=== PATIENT | female | born 1945 | race Caucasian/White ===

== ENCOUNTER 2020-02-21 10:02 | Emergency (ER) | payer MEDICARE, SELFPAY ==
--- NOTE | ~2020-02-21 | XR_ITS ---
XR hand RT min 3V DATE: 02/21/2020 10:50 INDICATION: Patient fell 2 days ago. Lower right rib pain. TECHNIQUE: PA chest. 3 views of the right ribs. COMPARISON: None FINDINGS: Normal heart size. No hilar or mediastinal enlargement. No pulmonary infiltrate or consolid ation, pleural effusion or pulmonary vascular congestion or pneumothorax. No displaced right rib fracture is noted. Surgical clips overlie the right upper quadrant, consistent with cholecystectomy. IMPRESSION: No evidence of displaced right rib fracture No active cardiac pulmonary disease Status post cholecystectomy Reviewed, dictated and finalized at location A. [facility]
[2020-02-21 10:22] VITALS: BP 139/83; PULSE 76; RESP 18; TEMP 36.9; O2SAT 100
--- NOTE | 2020-02-21 10:22 | ED.UPPEXIN ---
HPI - Extremity Injury (Upper) General Chief Complaint: Extremity Injury, Upper Stated Complaint: R/thumb pain Source: patient Mode of arrival: ambulatory Limitations: no limitations History of Present Illness HPI narrative: Patient is a 74-year-old female who presents complaining of right thumb pain. Patient reports pain at the base of right thumb and into the palm. Denies known injury, however, does report carrying groceries frequently. She reports pain x3 days. She has a history of gout. She takes allopurinol daily. She reports mild swelling and increased pain with movement, no warmth noted. She denies taking [id number] medications for pain at this time. complaint: injury to: right and hand Related Data Home Medications Medication Instructions Recorded Confirmed allopurinol 300 mg DAILY 02/21/20 02/21/20 amlodipine 5 mg DAILY 02/21/20 02/21/20 aspirin 81 mg DAILY 02/21/20 02/21/20 atorvastatin 20 mg DAILY 02/21/20 02/21/20 citalopram 20 mg DAILY 02/21/20 02/21/20 clopidogrel 75 mg DAILY 02/21/20 02/21/20 hydrochlorothiazide 25 mg DAILY 02/21/20 02/21/20 lisinopril 40 mg DAILY 02/21/20 02/21/20 metformin 850 mg DAILY 02/21/20 02/21/20 metoprolol tartrate 50 mg BID 02/21/20 02/21/20 Allergies Allergy/AdvReac Type Severity Reaction Status Date / Time No Known Allergies Allergy Verified 02/21/20 10:35 Review of Systems Review of Systems: Narrative: CONSTITUTIONAL: Denies fever, chills, or sweats. EYES: Denies visual changes, redness, or discharge. ENT: Denies rhinorrhea, congestion, sore throat, or otalgia. CARDIOVASCULAR: Denies chest pain, palpitations, or edema. RESPIRATORY: Denies cough or dyspnea. GASTROINTESTINAL: Denies abdominal pain, nausea, vomiting, or diarrhea. GENITOURINARY: Denies dysuria or hematuria. SKIN: Denies rash or itching. MUSCULOSKELETAL: Right thumb pain NEUROLOGIC: Denies headache, numbness, dizziness, or weakness. PSYCHIATRIC: Denies anxiety or depression. [facility] Past Medical History Medical History CVA (cerebral vascular accident) Diabetes Gout HTN (hypertension) Hypercholesterolemia Surgical History Surgical History Hx of CABG Family History Family History (Updated 02/21/20 @ 10:34 by MAYA Alvarado) Other Unknown family medical history Social History Social History (Updated 02/21/20 @ 10:34 by MAYA Alvarado) Smoking status: Never smoker Alcohol intake: never Substance use: never Gender identity (if verbalized by the patient): Female Exam Narrative: Exam Narrative: GENERAL: Well-appearing, well-nourished, and in no acute distress. HEAD: Normocephalic, atraumatic. EYES: No redness or drainage. ENT: Mucous membranes pink and moist. CHEST: No respiratory distress. EXTREMITIES: Mild edema at right thenar palm. Tenderness with range of motion. SKIN: Warm, dry, no rash. NEURO: No focal deficits. Alert and oriented x3. Gait steady. PSYCH: Normal affect. No signs of depression or anxiety. MDM - Extremity Injury (Upper) MDM Narrative Medical decision making narrative: X-ray of hand shows prominent osteoarthritis. Discussed with patient the possibility of gout, however, with patient being on daily allopurinol, there is a decreased possibility. Discussed with patient follow-up with her PCP in 3 to 5 days if symptoms persist. Also giving patient referral for hand specialist. Patient is stable for discharge home with outpatient follow-up as discussed. Differential Diagnosis Differential diagnosis: Likely sprain and strain of wrist, fracture of hand and other (Gout, arthritis) Imaging Data Radiologist's impression: ITS Impressions Hand X-Ray 02/21/20 10:55 IMPRESSION: No evidence of displaced right rib fracture No active cardiac pulmonary disease Status post cholecystectomy ADDENDUM: 02/21/20 1146 Corre
== END 2020-02-21 12:01 | disposition home or self-care (01) ==
PROVIDERS: Emergency Provider Nurse Practitioner
DX: M19.041 Primary osteoarthritis, right hand (principal); Z86.73 Personal history of transient ischemic attack (TIA), and cerebral infarction without residual deficits; E11.9 Type 2 diabetes mellitus without complications; M10.9 Gout, unspecified; I10 Essential (primary) hypertension; E78.00 Pure hypercholesterolemia, unspecified; Z95.1 Presence of aortocoronary bypass graft
CPT/HCPCS: 73130; 99203; G0463